=== PATIENT | female | born 1940 | race African-American/Black ===

== ENCOUNTER 2016-10-24 17:14 | Emergency (ER) | payer MEDICARE, BC ==
[~2016-10-24 17:14] MED LIST: ASPI-482; CLON0.1T; DONE10TA34; ESTR0.62; FLUT9.9S NS; HYDR1POW19; INSU100I13; INSU100I17; LISI-334; LORA10TA68 PO; NIFE90TA9
[2016-10-24 17:52] VITALS: BP 109/50
--- NOTE | 2016-10-24 18:20 | PHYS DOC ---
Past Medical History Past Medical History: Anxiety, Depression, Diabetes-Type II, High Cholesterol, Hypertension Past Surgical History: Cholecystectomy, Hysterectomy, Other Additional Past Surgical Histo: rotator cuff left Alcohol Use: None Drug Use: None Adult General Chief Complaint Chief Complaint: SHOULDER INJURY HPI HPI Patient is a 76 year old female with history of hypertension high cholesterol diabetes type 2 and anxiety who presents today with mild right shoulder pain that she states has been going on for 2 days. Patient denies any known injury. Patient also fell in the ED waiting area, she states she was trying to sit on a wheelchair and the wheelchair moved back she ended up landing on her buttocks and is complaining of low back pain, patient denies any loss of consciousness, patient denies hitting her head on the ground. Patient denies any loss of consciousness. Review of Systems Review of Systems Constitutional: Denies fever or chills [] Eyes: Denies change in visual acuity, redness, or eye pain [] HENT: Denies nasal congestion or sore throat [] Respiratory: Denies cough or shortness of breath [] Cardiovascular: No additional information not addressed in HPI [] GI: Denies abdominal pain, nausea, vomiting, bloody stools or diarrhea [] : Denies dysuria or hematuria [] Musculoskeletal: Right shoulder pain and low back pain Integument: Denies rash or skin lesions [] Neurologic: Denies headache, focal weakness or sensory changes [] Endocrine: Denies polyuria or polydipsia [] Current Medications Current Medications Current Medications Medications (Trade) Dose Ordered Sig/[facility] Start Time Stop Time Status Last Admin Dose Admin Ketorolac Tromethamine (Toradol) 30 mg 1X ONCE 10/24/16 18:30 10/24/16 18:31 DC 10/24/16 18:19 30 MG Allergies Allergies Allergies Coded Allergies Type Severity Reaction Last Updated Verified No Known Drug Allergies 08/03/13 No Physical Exam Physical Exam Constitutional: Well developed, well nourished, no acute distress, non-toxic appearance. [] HENT: Normocephalic, atraumatic, bilateral external ears normal, oropharynx moist, no oral exudates, nose normal. [] Eyes: PERRLA, EOMI, conjunctiva normal, no discharge. [] Neck: Normal range of motion, no tenderness, supple, no stridor. [] Cardiovascular:Heart rate regular rhythm, no murmur [] Lungs & Thorax: Bilateral breath sounds clear to auscultation [] Abdomen: Bowel sounds normal, soft, no tenderness, no masses, no pulsatile masses. [] Skin: Warm, dry, no erythema, no rash. [] Back: Tenderness diffusely to paraspinal muscles of bilateral low lumbar region , slight midline tenderness to the lumbar region, no CVA tenderness. [] Extremities: Right shoulder with no obvious deformity. Tenderness diffusely throughout the right shoulder SCM joint, very limited range of motion to the right shoulder due to pain. Patient is not able to adduct right shoulder past 20 . Adequate plantar flexion and dorsiflexion of the right forearm. +2 right radial pulse, sensation intact to the right upper extremity. Adequate ulnar medial and radial sensation to the right upper extremity. Neurologic: Alert and oriented X 3, normal motor function, normal sensory function, no focal deficits noted. [] Psychologic: Affect normal, judgement normal, mood normal. [] Current Patient Data Vital Signs Vital Signs Date Time Temp Pulse Resp B/P Pulse Ox O2 Delivery O2 Flow Rate FiO2 10/24/16 17:52 98.4 78 18 98 Room Air 98.4 EKG EKG [] Radiology/Procedures Radiology/Procedures [] Course & Med Decision Making Course & Med Decision Making Pertinent Labs and Imaging studies reviewed. (See chart for details) Patient is in the ED with right shoulder pain and low back pain. Right shoulder pain has been going on for 2 days with no known injury. Right shoulder x-rays interpreted by Dr. Alves are negative for any acute findings but noted for arthritis. Her back pain began today when she fell in the ED waiting area. Lumbar x-rays interpreted by Dr. Alves are negative for any acute findings but noted for arthritis. Patient was discharged with Tylenol 3 and topical diclofenac. She is to follow-up with her own PCP in one week if pain continues. She was provided return precautions and discharged in stable condition. Dragon Disclaimer Dragon Disclaimer This electronic medical record was generated, in whole or in part, using a voice recognition dictation system. 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 Your x-rays of the shoulder and back are showing you have arthritis. Use the provided medicines as ordered. Follow-up with your doctor in one week. Come back to the ED symptoms worsen. Scripts Diclofenac Sodium (Voltaren)100 Gm Gel..gram.1 Gm TP QID #100 GM Ref 2 Prov:JOSE ASHER APRN 10/24/16 Acetaminophen With Codeine (Tylenol With Codeine #3 Tablet)1 Each Tablet1 Tab PO PRN Q6HRS PRN PAIN #20 TAB Prov:JOSE ASHER APRN 10/24/16 Problem Qualifiers Primary Impression: Lumbar contusion Encounter type: initial encounter Qualified Code: S30.0XXA - Contusion of lower back and pelvis, initial encounter Additional Impressions: Right shoulder pain Chronicity: acute Qualified Code: M25.511 - Pain in right shoulder DJD of right shoulder Osteoarthritis type: unspecified Qualified Code: M19.011 - Primary osteoarthritis, right 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
[2016-10-24] MEDS ORDERED: KETOROLAC TROMETHAMINE 30 MG/ML INJ. IM ONE (18:30)
[2016-10-24] MEDS ORDERED: ACET-704 PO (19:37)
[2016-10-24] MEDS ORDERED: DICL100G7 TP (19:37)
--- NOTE | 2016-10-25 10:11 | RAD ---
Three-view lumbar spine radiographs 10/24/2016 Clinical history: Low back pain with recent fall. AP and 2 lateral digital radiographs of the lumbar spine were obtained. Very mild S-shaped curvature of the thoracolumbar spine is noted. Mild anterolisthesis of L4 in relation to L5 is seen. Mild to moderate anterolisthesis of L5 in relation to S1 is noted. Degenerative changes are seen throughout the lower thoracic and throughout the lumbar disc spaces consisting of varying degrees of disc space narrowing, vertebral endplate sclerosis and mild to moderate anterior vertebral body osteophyte formation. Degenerative changes are seen involving the facet joints throughout the mid and lower lumbar disc spaces. No fracture or subluxation is seen. Atherosclerotic calcification of the abdominal aorta and its branches is seen. Impression: No acute fracture or subluxation of the lumbar vertebrae is seen.
--- NOTE | 2016-10-25 11:03 | RAD ---
Three-view right shoulder radiographs 10/24/2016 Clinical history: Right shoulder pain for 3 weeks. AP internal and external rotation and transscapular digital radiographs of the right shoulder were obtained. No fracture or dislocation of the right shoulder is seen. Moderate to severe degenerative changes are seen involving the right glenohumeral joint and right AC joint. Superior subluxation of the right humeral head and relation to the glenoid is noted. Bone to bone contact of the humeral head with the acromion is seen. These findings are consistent with a complete tear of the right supraspinatus tendon ( rotator cuff). Impression: Degenerative changes are seen involving the right shoulder as outlined above. No fracture or dislocation is seen.
== END 2016-10-24 19:51 | disposition home or self-care (01) ==
LOC: ER 17:14
DX: S30.0XXA Contusion of lower back and pelvis, initial encounter (principal); M25.511 Pain in right shoulder; M19.011 Primary osteoarthritis, right shoulder; M47.816 Spondylosis without myelopathy or radiculopathy, lumbar region; E11.9 Type 2 diabetes mellitus without complications; E78.00 Pure hypercholesterolemia, unspecified; I10 Essential (primary) hypertension; Z90.49 Acquired absence of other specified parts of digestive tract; Z90.710 Acquired absence of both cervix and uterus; W18.39XA Other fall on same level, initial encounter; Y93.89 Activity, other specified; Y92.89 Other specified places as the place of occurrence of the external cause; Y99.8 Other external cause status
CPT/HCPCS: 72100; 73030; 96372; 99284; J1885

== ENCOUNTER → 2016-12-08 | Outpatient (CLI) | payer MEDICARE, BC ==
[~2016-12-08] MED LIST changes: +ACET-704 PO; +CONTRAST GIVEN MC PRN; +DICL100G7 TP; +IOHEXOL 240 MG/ML 50ML VIAL. PO ONE; +IOHEXOL 300 MG/ML 75 ML VIAL IV ONE
--- NOTE | 2016-12-08 12:12 | RAD ---
Indication abdominal pain. Weight loss. Duration of symptoms one year. Assess for a cold malignancy. Axial images of the abdomen and pelvis were obtained. Both oral and IV contrast were administered. 75 cc of Omnipaque 300 was administered intravenously. No prior CT imaging of the abdomen or pelvis is available. A definite significant finding at the lung bases is not seen. There is a small pleural-based noncalcified nodule in the right lower lobe measuring approximately 6 x 2 mm. (Image 5 series 2). This is probably incidental but follow-up imaging along the lines of the Fleischner criteria should be considered. There is a 3 mm noncalcified pulmonary nodule in the left lower lobe, image 6. Again follow-up imaging along the lines of the Fleischner criteria should be considered. There may be small, approximately 2 mm, nodules in the right middle lobe seen on the first and second images. There is a small, uncomplicated, abdominal wall hernia in the midabdomen just to the left of midline. A small periumbilical hernia containing only fat is additionally noted. The liver and spleen appear unremarkable. No pancreatic abnormality is seen. There is possible thickening over a 2 cm segment involving the antrum of the stomach. The finding could be secondary to peristalsis. If gastric pathology is suspect endoscopy would be advised. No adrenal or renal pathology is seen. There is no significant central or retroperitoneal adenopathy in the abdomen. In the pelvis no focal mass or inflammatory process is seen. IMPRESSION: No acute finding seen in the abdomen or pelvis. Possible thickening involving the gastric antrum. The finding is not certain and may be a reflection of peristalsis. If gastric pathology is suspect endoscopy should be considered. Small ventral wall abdominal hernias appearing uncomplicated. Small noncalcified pulmonary nodules at the lung bases. Follow-up imaging will lines of the Fleischner criteria should be considered. Nodules detected incidentally at non-screening CT Nodule size (mm) less than or equal to 4 Low Risk patients- no follow-up needed High Risk patients- follow-up at 12 months and if no change, no further imaging needed. Nodule size > 4-6 mm Low risk patients- follow- up at 12 months and if no change, no further imaging needed High risk patients- initial follow-up CT at 6-12 months and then at 18-24 months if no change. Nodule Size > 6-8 mm Low risk patients- initial follow-up CT at 6-12 months and then at 18-24 months if no change. High risk patients- initial follow- up CT at 3-6 months and then at 9-12 months if no change, Nodule Size >8 mm Either low or high risk patients: Follow-up CT at around 3, 9 and 24 months Dynamic contrast enhanced [address], PET, and/or biopsy Note: newly detected indeterminate nodule in person 35 years of age or older. Low risk patients- minimal or absent history of smoking and/or other known risk factors. High risk patients- history of smoking or of other known risk factors. PQRS Compliance Statement: One or more of the following individualized dose reduction techniques were utilized for this examination: 1. Automated exposure control 2. Adjustment of the mA and/or kV according to patient size 3. Use of iterative reconstruction technique
== END | disposition home or self-care (01) ==
LOC: CT 10:09
PROVIDERS: ATTEND Specialist
DX: R10.9 Unspecified abdominal pain (principal); R63.4 Abnormal weight loss; R91.8 Other nonspecific abnormal finding of lung field
CPT/HCPCS: 74177; Q9966; Q9967

== ENCOUNTER → 2016-12-10 | Outpatient (CLI) | payer MEDICARE, BC ==
[~2016-12-10] MED LIST changes: -CONTRAST GIVEN MC PRN; -IOHEXOL 240 MG/ML 50ML VIAL. PO ONE; -IOHEXOL 300 MG/ML 75 ML VIAL IV ONE
--- NOTE | 2016-12-10 08:51 | RAD ---
Indication continuing weight loss for approximately a year. Poor appetite. Protocol study. Suspect occult malignancy. PA and lateral views of the chest were obtained. Comparison is made to an examination August 03, 2013. Heart size is at the upper limits of normal. There is no gross congestive heart failure. Acute parenchymal infiltrate in either lung is not seen. Significant pleural fluid is not present. There is no pneumothorax. There are degenerative changes about the right shoulder and in the thoracic spine. IMPRESSION:: No acute or focal process is seen in the chest
--- NOTE | 2016-12-10 11:48 | RAD ---
Radionuclide gastric emptying study, 12/10/2016: History: Nausea, weight loss The study was performed utilizing a solid test meal radiolabeled with 2.1 mCi of technetium 99m sulfur colloid. Imaging of the abdomen obtained out to one hour showed very little gastric emptying. The time activity curve is relatively flat. An accurate T1/2 cannot be calculated in this circumstance. IMPRESSION: Markedly delayed gastric emptying
== END | disposition home or self-care (01) ==
LOC: NM 08:15
PROVIDERS: ATTEND Specialist
DX: K30 Functional dyspepsia (principal); R63.0 Anorexia; R63.4 Abnormal weight loss
CPT/HCPCS: 71020; 78264; A9541

== ENCOUNTER 2017-01-14 22:33 | Emergency (ER) | payer OTHER, MEDICARE, BC ==
[~2017-01-14] VITALS: Ht 160 cm; Wt 69.4 kg
[~2017-01-14 22:33] MED LIST changes: +DICL100G18 TP; -DICL100G7 TP; -DONE10TA34; +DONE10TA61
[2017-01-14] MEDS ORDERED: oxyCODONE/APAP 5/325 1 TAB TABLET PO ONE (23:00)
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
[2017-01-14] MEDS ORDERED: OXYC-323 PO (23:31)
[2017-01-14 23:57] VITALS: BP 135/65
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
== END 2017-01-15 00:03 | disposition home or self-care (01) ==
LOC: ER 22:33
DX: S49.92XA Unspecified injury of left shoulder and upper arm, initial encounter (principal); S49.91XA Unspecified injury of right shoulder and upper arm, initial encounter; F41.9 Anxiety disorder, unspecified; F32.9 Major depressive disorder, single episode, unspecified; E11.9 Type 2 diabetes mellitus without complications; E78.00 Pure hypercholesterolemia, unspecified; I10 Essential (primary) hypertension; Z90.49 Acquired absence of other specified parts of digestive tract; Z90.710 Acquired absence of both cervix and uterus; V43.52XA Car driver injured in collision with other type car in traffic accident, initial encounter; Y93.I9 Activity, other involving external motion; Y92.410 Unspecified street and highway as the place of occurrence of the external cause; Y99.8 Other external cause status
CPT/HCPCS: 73030; 73060; 82962; 99284

== ENCOUNTER → 2017-06-02 | Outpatient (CLI) | payer MEDICARE, BC ==
[~2017-06-02] MED LIST changes: +OXYC-323 PO
--- NOTE | 2017-06-03 08:17 | RAD ---
DATE: 06/03/2017 EXAM: DIGITAL SCREEN BILAT W/CAD HISTORY: Routine screening COMPARISON: Previous mammogram from 2016 and 2014 This study was interpreted with the benefit of Computerized Aided Detection (CAD). FINDINGS: Breast Density: SCATTERED The breast parenchyma shows scattered fibroglandular densities. Breast parenchyma level B. The skin and nipples are within normal limits. No suspicious calcifications, spiculated masses or areas of architectural distortion. IMPRESSION: No mammographic evidence of malignancy. Stable mammogram. BI-RADS CATEGORY: 1 NEGATIVE RECOMMENDED FOLLOW-UP: 12M 12 MONTH FOLLOW-UP PQRS compliance statement: Patient information was entered into a reminder system with a target due date 06/03/2018 for the next mammogram. Mammography is a sensitive method for finding small breast cancers, but it does not detect them all and is not a substitute for careful clinical examination. A negative mammogram does not negate a clinically suspicious finding and should not result in delay in biopsying a clinically suspicious abnormality. "Our facility is accredited by the [employer] Mammography [employer]."
== END | disposition home or self-care (01) ==
LOC: MAMMO 14:20
PROVIDERS: ATTEND Family Medicine
DX: Z12.31 Encounter for screening mammogram for malignant neoplasm of breast (principal)
CPT/HCPCS: G0202; 77067

== ENCOUNTER → 2018-10-07 | Outpatient (CLI) | payer MEDICARE, BC ==
[~2018-10-07] MED LIST changes: -OXYC-323 PO; +OXYC1TAB15 PO
--- NOTE | 2018-10-07 13:12 | RAD ---
DATE: 10/07/2018 EXAM: MAMMO TOM SCREENING BILATERAL HISTORY: Routine screening COMPARISON: 06/02/2017 This study was interpreted with the benefit of Computerized Aided Detection (CAD). Breast Density: SCATTERED The breast parenchyma shows scattered fibroglandular densities. Breast parenchyma level B. FINDINGS: 2-D and 3-D tomosynthesis imaging was performed in CC and MLO projections. No new or enlarging breast densities are seen. Minimal benign type calcification is present. No suspicious microcalcifications are evident. IMPRESSION: Stable mammograms without evidence of malignancy. BI-RADS CATEGORY: 3 PROBABLY BENIGN FINDING(S)-SHORT INTERVAL FOLLOW-UP SUGGESTED RECOMMENDED FOLLOW-UP: 12M 12 MONTH FOLLOW-UP PQRS compliance statement: Patient information was entered into a reminder system with a target due date for the next mammogram. Mammography is a sensitive method for finding small breast cancers, but it does not detect them all and is not a substitute for careful clinical examination. A negative mammogram does not negate a clinically suspicious finding and should not result in delay in biopsying a clinically suspicious abnormality. "Our facility is accredited by the [employer] Mammography [employer]."
== END | disposition home or self-care (01) ==
LOC: MAMMO 11:31
PROVIDERS: ATTEND Nurse Practitioner Family
DX: Z12.31 Encounter for screening mammogram for malignant neoplasm of breast (principal)
CPT/HCPCS: 77063; 77067

== ENCOUNTER 2019-12-01 12:31 | Inpatient (IN) | payer OTHER, BC ==
[~2019-12-01] VITALS: Ht 162.6 cm; Wt 63.6 kg
[~2019-12-01 12:31] MED LIST changes: -CLON0.1T; +CLON0.1T PO; -DICL100G18 TP; +DICL100G54 TP; -DONE10TA61; +DONE10TA61 PO; -INSU100I13; +INSU100I13 SQ; -LISI-334; +LISI-334 PO; +NIFE90TA49 PO; -NIFE90TA9
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
[2019-12-01] MEDS ORDERED: ACETAMINOPHEN 325 MG TABLET. PO PRN (13:30)
[2019-12-01] MEDS ORDERED: HYDROcodone/APAP 5/325MG 1 TAB TABLET PO ONE (13:30)
[2019-12-01] MEDS ORDERED: ONDANSETRON PF 4 MG/2 ML VIAL. IV PRN ×2 (13:30→16:45)
[2019-12-01] MEDS ORDERED: DEXTROSE 50% 25 GM / 50ML DISP.SYRIN. IV PRN (13:30)
[2019-12-01] MEDS ORDERED: MORPHINE SULFATE 2 MG/ML VIAL. IV ONE (13:30)
--- NOTE | 2019-12-01 14:02 | RAD ---
EXAM: CHEST 1 VIEW History: Preop COMPARISON: 08/03/2039 TECHNIQUE: Single portable radiograph of the chest FINDINGS: The cardiac silhouette is unremarkable. The lungs are clear bilaterally. The costophrenic sulci are clear and well demarcated. IMPRESSION: No radiographic evidence of an acute cardiopulmonary process. Electronically signed by: Doe Oh MD (12/01/2019 1:59 PM) [id number]
[2019-12-01 14:04] LABS: BASO # 0.1 x10^3/uL (0.0-0.2); BASO % 1 % (0-3); EOS # 0.2 x10^3/uL (0.0-0.7); EOS % 2 % (0-3); HEMATOCRIT 32.2 % (36.0-47.0); HEMOGLOBIN 10.8 g/dL (12.0-15.5); LYMPH # 2.5 x10^3/uL (1.0-4.8); LYMPH % 23 % (24-48); MEAN CORPUSCULAR HEMOGLOBIN 26 pg (25-35); MEAN CORPUSCULAR HGB CONC 34 g/dL (31-37); MEAN CORPUSCULAR VOLUME 79 fL (79-100); MONO # 0.6 x10^3/uL (0.0-1.1); MONO % 6 % (0-9); NEUT # 7.2 x10^3/uL (1.8-7.7); NEUT % 68 % (31-73); PLATELET COUNT 379 x10^3/uL (140-400); RED BLOOD COUNT 4.09 x10^6/uL (3.50-5.40); RED CELL DISTRIBUTION WIDTH 17.2 % (11.5-14.5); WHITE BLOOD COUNT 10.6 x10^3/uL (4.0-11.0)
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
[2019-12-01 15:19] LABS: CALCIUM 8.7 mg/dL (8.5-10.1); CREATININE 1.1 mg/dL (0.6-1.0); GFR 57.7; POTASSIUM 3.3 mmol/L (3.5-5.1)
[2019-12-01 15:26] LABS: ALBUMIN 3.1 g/dL (3.4-5.0); ALBUMIN/GLOBULIN RATIO 0.8 (1.0-1.7); TOTAL BILIRUBIN 0.3 mg/dL (0.2-1.0); TOTAL PROTEIN 7.2 g/dL (6.4-8.2)
--- NOTE | 2019-12-01 17:21 | NUR ---
Patient to transfer to [address] [place] [address] given.
[2019-12-01] MEDS: MORPHINE SULFATE 4 MG/ML VIAL. IV PRN ×2 (17:47→20:32)
[2019-12-01 18:00] VITALS: BP 140/72
--- NOTE | 2019-12-01 18:00 | NUR ---
Received patient transfer from ICU, will continue to monitor patient.
[2019-12-01 19:11] LABS: BACTERIA,URINE MANY /HPF (0-FEW); BILIRUBIN,URINE NEGATIVE (NEG); CLARITY,URINE CLEAR; COLOR,URINE YELLOW; HYALINE CASTS, URINE MODERATE /HPF; NITRITE,URINE NEGATIVE (NEG); PH,URINE 5.5 (<5.0-8.0); PROTEIN,URINE 30 mg/dL (NEG-TRACE); RBC,URINE 0 /HPF (0-2); SQUAMOUS EPITHELIAL CELL,UR MANY /LPF; UROBILINOGEN,URINE 0.2 mg/dL (0.2 mg/dL); YEAST,URINE PRESENT /HPF
[2019-12-01] MEDS ORDERED: POTASSIUM CHLORIDE 20 MEQ TABLET.ER. PO ONE (20:30)
[2019-12-01] MEDS ORDERED: METF10007 PO (20:52)
[2019-12-01 22:14] VITALS: BP 205/73
[2019-12-01] MEDS ORDERED: cloNIDine HCL 0.1 MG TABLET PO PRN (22:30)
[2019-12-01] MEDS ORDERED: IV NORMAL SALINE 1000ML BAG 1,000 ML IV ONE (22:30)
[2019-12-01] MEDS: DICLOFENAC SODIUM 1% TOPICAL GEL 100GM TUBE. TP SCH (22:41)
[2019-12-01] MEDS: oxyCODONE/APAP 5/325 1 TAB TABLET PO PRN (23:53)
[2019-12-02] VITALS (13 sets, daily range): BP systolic 147–209; BP diastolic 55–84
[2019-12-02] MEDS: MORPHINE SULFATE 4 MG/ML VIAL. IV PRN (00:48)
--- NOTE | 2019-12-02 01:53 | NUR ---
This RN is taking over care from previous RN. Pt. is asleep at this time. Addendum: 12/02/19 at 0156 by EMILY HOOPER RN This note was meant for a different patient.
[2019-12-02] MEDS: hydrALAZINE 20 MG/ML VIAL. IVP PRN ×2 (03:47→20:50)
[2019-12-02 04:35] LABS: BASO % 0 % (0-3); EOS # 0.1 x10^3/uL (0.0-0.7); EOS % 1 % (0-3); HEMATOCRIT 32.7 % (36.0-47.0); HEMOGLOBIN 10.8 g/dL (12.0-15.5); LYMPH # 1.4 x10^3/uL (1.0-4.8); LYMPH % 12 % (24-48); MEAN CORPUSCULAR HEMOGLOBIN 26 pg (25-35); MEAN CORPUSCULAR HGB CONC 33 g/dL (31-37); MEAN CORPUSCULAR VOLUME 78 fL (79-100); MONO # 0.7 x10^3/uL (0.0-1.1); MONO % 6 % (0-9); NEUT # 9.4 x10^3/uL (1.8-7.7); NEUT % 81 % (31-73); PLATELET COUNT 369 x10^3/uL (140-400); RED BLOOD COUNT 4.18 x10^6/uL (3.50-5.40); RED CELL DISTRIBUTION WIDTH 17.6 % (11.5-14.5); WHITE BLOOD COUNT 11.6 x10^3/uL (4.0-11.0)
[2019-12-02 05:02] LABS: CALCIUM 8.8 mg/dL (8.5-10.1); CREATININE 0.8 mg/dL (0.6-1.0); GFR 83.3; POTASSIUM 3.5 mmol/L (3.5-5.1)
--- NOTE | 2019-12-02 05:48 | EKG ---
[facility] [address] [place] [address] Test Date: 2019-12-02 Test Time: 05:02:25 Pat Name: STEVEN KRUGER Department: Room: [facility] Gender: F Travel Consultant: CHANDLER : 1940 Requested By: ALPHONSO AARON Order Number: [id number] Reading MD: Krishna Gannon MD Measurements Intervals [place] Rate: 77 P: 57 NE: 162 QRS: -13 QRSD: 76 T: 29 QT: 392 QTc: 445 Interpretive Statements SINUS RHYTHM NON-SPECIFIC ST/T CHANGES Electronically Signed On 12-04-2019 12:20:26 CDT by Krishna Gannon MD
[2019-12-02] MEDS ORDERED: ONDANSETRON PF 4 MG/2 ML VIAL. IV PRN (07:00)
[2019-12-02] MEDS ORDERED: PROCHLORPERAZINE 10 MG/2 ML VIAL. IV PRN (07:00)
[2019-12-02] MEDS ORDERED: LIDOCAINE 1% PF 2 ML VIAL. ID PRN (07:00)
[2019-12-02] MEDS ORDERED: fentaNYL PF VIAL 100 MCG/2 ML VIAL IV PRN ×2 (07:00)
[2019-12-02] MEDS ORDERED: HYDROmorphone 2 MG/ML VIAL IV PRN (07:00)
[2019-12-02] MEDS ORDERED: IV RINGERS,LACTATED 1000ML 1,000 ML IV SCH (07:00)
[2019-12-02] MEDS ORDERED: MORPHINE SULFATE 2 MG/ML VIAL. IV PRN (07:00)
[2019-12-02] MEDS ORDERED: DEXAMETHASONE SOD PHOS 4 MG/ML VIAL ONE (07:42)
[2019-12-02] MEDS ORDERED: ONDANSETRON PF 4 MG/2 ML VIAL. ONE (07:42)
[2019-12-02] MEDS ORDERED: PROPOFOL 10 MG/ML (20ML) VIAL. IV ONE (07:42)
[2019-12-02] MEDS ORDERED: LIDOCAINE 2% PF 5 ML VIAL. ONE (07:42)
[2019-12-02] MEDS ORDERED: SUCCINYLCHOLINE 200 MG/10 ML VIAL. ONE (07:50)
[2019-12-02] MEDS: ASPIRIN ENTERIC COATED 81 MG TABLET.DR. PO SCH (08:00)
[2019-12-02] MEDS ORDERED: ceFAZolin SODIUM IV Push 1 GM VIAL. IVP ONE (08:15)
[2019-12-02] MEDS ORDERED: MORPHINE SULFATE 10 MG/ML VIAL. ONE (08:39)
[2019-12-02] MEDS ORDERED: BUPIVACAINE MPF 0.5% 30 ML VIAL. ONE (08:56)
[2019-12-02] MEDS ORDERED: POTASSIUM CHLORIDE 20 MEQ TABLET.ER. PO ONE ×2 (09:00→15:45)
[2019-12-02] MEDS: DICLOFENAC SODIUM 1% TOPICAL GEL 100GM TUBE. TP SCH ×4 (09:00→20:50)
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
[2019-12-02] MEDS ORDERED: SEVOFLURANE 61 TO 120 MINUTES. IH ONE (09:09)
[2019-12-02] MEDS ORDERED: hydrALAZINE 20 MG/ML VIAL. ONE (10:00)
[2019-12-02] MEDS ORDERED: ceFAZolin SODIUM IV Push 1 GM VIAL. IVP PRN (10:30)
[2019-12-02] MEDS: FLUTICASONE 50MCG/NASAL SPRAY 16GM BOTTLE. NS SCH (14:57)
[2019-12-02] MEDS: DONEPEZIL HCL 10 MG TABLET. PO SCH (14:57)
[2019-12-02] MEDS: LISINOPRIL 20 MG TABLET PO SCH (15:00)
[2019-12-02] MEDS: CHOLECALCIFEROL (VITAMIN D3) 5,000 UNIT CAPSULE PO SCH (15:01)
--- NOTE | 2019-12-02 20:10 | PDOC4 ---
Operative Note Operative Note Date of surgery: 12/02/2019 Preoperative diagnosis: Right ankle bimalleolar fracture dislocation Postoperative diagnosis: Same with additional anterior comminution Operative procedure: Operative reduction internal fixation right bimalleolar ankle fracture Surgeon: Lalito Anesthesia: General Estimated blood loss: 25 cc Complications: None Operative indications: Please see my dictated orthopedic consultation note of today for detailed operative indications Operative text: Patient was identified procedure verified and she was placed in the supine position on the operating table. After adequate amounts of general anesthesia were administered the right lower extremity was prepped and draped in standard sterile fashion and after timeout was performed patient procedure identified and verified the right lower extremity was exsanguinated by Esmarch bandage tourniquet inflated to 250 mmHg a curvilinear incision was made over the medial malleolus extended up to the distal metaphyseal area and anatomic reduction was carried out of the large medial fragment and a [employer] variable angle locking plate was placed and provisionally fixated under fluoroscopic guidance. Nonlocking shaft screw was initially placed to further buttress and distal locking screws were placed to hold the distal fragment in reduction and these were checked under multiple fluoroscopic views to ensure no joint penetration occurred. Remaining shaft screws including some locking screws were placed proximally and anatomic reduction appeared of the ankle joint mortise and the medial fragment. The distal fibula was comminuted and a [employer] variable angle distal fibular locking plate was employed again with a small shaft screw with provisional fixation and distal locking screws under fluoroscopic guidance to further ensure alignment of the distal fibula and its support of the ankle joint mortise further locking screws were placed proximally in the shaft and anatomic placement of the ankle joint mortise was noted. She did have some comminution anteriorly but this was noted to be well aligned and the joint congruent. Thorough irrigation carried out with normal saline solution closure accomplished with buried Vicryl suture skin closure with ann a well-padded stirrup splint was placed following sterile dressings toes were noted to be warm pink following deflation of the tourniquet after total tourniquet time slightly in excess of 1 hour patient was returned to recovery room in stable condition having tolerated the procedure well SYLWIA NEUMANN MD December 02, 2019 20:10
[2019-12-02] MEDS ORDERED: INSU100I13 SQ (21:21)
[2019-12-02] MEDS: INSULIN GLARGINE SYRINGE. SQ SCH (21:39)
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
[2019-12-03 03:02] VITALS: BP 162/61
[2019-12-03 05:26] LABS: CALCIUM 8.6 mg/dL (8.5-10.1); GFR 64.4
[2019-12-03 05:43] LABS: BASO % 0 % (0-3); EOS % 0 % (0-3); HEMATOCRIT 27.3 % (36.0-47.0); HEMOGLOBIN 9.2 g/dL (12.0-15.5); LYMPH # 2.3 x10^3/uL (1.0-4.8); LYMPH % 18 % (24-48); MEAN CORPUSCULAR HEMOGLOBIN 26 pg (25-35); MEAN CORPUSCULAR HGB CONC 34 g/dL (31-37); MEAN CORPUSCULAR VOLUME 78 fL (79-100); MONO # 1.1 x10^3/uL (0.0-1.1); MONO % 9 % (0-9); NEUT % 72 % (31-73); PLATELET COUNT 300 x10^3/uL (140-400); RED BLOOD COUNT 3.49 x10^6/uL (3.50-5.40); RED CELL DISTRIBUTION WIDTH 17.4 % (11.5-14.5); WHITE BLOOD COUNT 12.5 x10^3/uL (4.0-11.0)
[2019-12-03 07:27] VITALS: BP 158/56
[2019-12-03] MEDS: DICLOFENAC SODIUM 1% TOPICAL GEL 100GM TUBE. TP SCH ×4 (07:53→20:55)
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
[2019-12-03] MEDS: ASPIRIN ENTERIC COATED 81 MG TABLET.DR. PO SCH (07:54)
[2019-12-03] MEDS: metFORMIN 500 MG TABLET PO SCH (07:54)
[2019-12-03] MEDS: FLUTICASONE 50MCG/NASAL SPRAY 16GM BOTTLE. NS SCH (07:55)
[2019-12-03] MEDS: LISINOPRIL 20 MG TABLET PO SCH (07:55)
[2019-12-03] MEDS: DONEPEZIL HCL 10 MG TABLET. PO SCH (07:55)
[2019-12-03] MEDS: CHOLECALCIFEROL (VITAMIN D3) 5,000 UNIT CAPSULE PO SCH (07:56)
[2019-12-03] MEDS: INSULIN GLARGINE SYRINGE. SQ SCH ×2 (08:05→20:59)
[2019-12-03] MEDS: INSULIN LISPRO 300 UNITS/3 ML VIAL. SQ SCH ×6 (09:29→20:59)
[2019-12-03] MEDS ORDERED: CHOL500021 PO (10:53)
[2019-12-03] MEDS ORDERED: ASPI325T8 PO (10:53)
[2019-12-03] MEDS ORDERED: OXYC1TAB15 PO (10:53)
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
[2019-12-03 11:36] VITALS: BP 151/59
[2019-12-03 15:59] VITALS: BP 138/56
[2019-12-03] MEDS: oxyCODONE/APAP 5/325 1 TAB TABLET PO PRN (18:59)
[2019-12-03 19:00] VITALS: BP 189/69
[2019-12-03] MEDS: hydrALAZINE 20 MG/ML VIAL. IVP PRN (20:53)
[2019-12-03 23:00] VITALS: BP 147/62
[2019-12-04 03:00] VITALS: BP 149/62
[2019-12-04 07:00] VITALS: BP 163/76
[2019-12-04] MEDS: INSULIN LISPRO 300 UNITS/3 ML VIAL. SQ SCH ×7 (07:30→21:00)
[2019-12-04] MEDS: FLUTICASONE 50MCG/NASAL SPRAY 16GM BOTTLE. NS SCH (08:38)
[2019-12-04] MEDS: DICLOFENAC SODIUM 1% TOPICAL GEL 100GM TUBE. TP SCH ×4 (08:38→20:43)
[2019-12-04] MEDS: metFORMIN 500 MG TABLET PO SCH (08:39)
[2019-12-04] MEDS: DONEPEZIL HCL 10 MG TABLET. PO SCH (08:39)
[2019-12-04] MEDS: CHOLECALCIFEROL (VITAMIN D3) 5,000 UNIT CAPSULE PO SCH (08:39)
[2019-12-04] MEDS: ASPIRIN ENTERIC COATED 81 MG TABLET.DR. PO SCH (08:39)
[2019-12-04] MEDS: LISINOPRIL 20 MG TABLET PO SCH ×3 (08:40→20:44)
[2019-12-04] MEDS: INSULIN GLARGINE SYRINGE. SQ SCH ×2 (08:49→21:00)
[2019-12-04 11:00] VITALS: BP 185/78
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
[2019-12-04] MEDS: hydrALAZINE 20 MG/ML VIAL. IVP PRN (12:04)
--- NOTE | 2019-12-04 12:31 | NUR ---
JAKY following. Discussed with RN, pt from home with granddaughterLillie ([phone]). PT/OT recommending SNU. JAKY met with pt (no isolation precautions at the time) to discuss discharge planning. Pt does not want to go to SNU as she is worried about the bills, SW explained the insurance coverage - pt worried if she has to stay more than 20 days. Pt reported she has a big family who can help her. SW expressed concern about pt's non weight bearing status, pt reported she would be trying the knee scooter with therapy this afternoon. Pt agreed to go to SNU if she does not do well with the scooter. Pt also gave permission for SW to contact her granddaughter. JAKY spoke with Lillie, she works 12 hour shifts so would not be able to care for pt. Lillie would like for pt to go to SNU, even if just for 20 days so she can figure out with her work to be able to be home 25/01 to help take care of pt. Lillie advised she will call pt to speak with her and contact JAKY to advise of discussion/ plan. JAKY will continue to follow. Pt has [facility]. Addendum: 12/04/19 at 1537 by ZAINAB STARKEY JAKY spoke with Lillie - pt agreed to go to SNU. JAKY met with pt, pt agreed for SNU, went to [facility] in the past. Pt would like referral sent to [facility] as they have had no COVID-19. Pt had Coronavirus in October 2019 - test negative early November. JAKY faxed referral to [facility] (ph: [phone], fax: [phone]), awaiting acceptance decision, insurance auth and confirmation of whether pt needs another COVID test. RN notified. Pt choice of vendor form completed by pt.
[2019-12-04 15:00] VITALS: BP 139/57
[2019-12-04 19:00] VITALS: BP 156/66
[2019-12-04 23:00] VITALS: BP 156/64
[2019-12-05] VITALS (7 sets, daily range): BP systolic 135–171; BP diastolic 55–74
[2019-12-05] MEDS: oxyCODONE/APAP 5/325 1 TAB TABLET PO PRN (02:18)
[2019-12-05 07:24] LABS: BASO # 0.1 x10^3/uL (0.0-0.2); BASO % 1 % (0-3); EOS # 0.4 x10^3/uL (0.0-0.7); EOS % 3 % (0-3); HEMATOCRIT 27.4 % (36.0-47.0); HEMOGLOBIN 9.2 g/dL (12.0-15.5); LYMPH # 2.6 x10^3/uL (1.0-4.8); LYMPH % 24 % (24-48); MEAN CORPUSCULAR HEMOGLOBIN 26 pg (25-35); MEAN CORPUSCULAR HGB CONC 34 g/dL (31-37); MEAN CORPUSCULAR VOLUME 78 fL (79-100); MONO # 0.9 x10^3/uL (0.0-1.1); MONO % 8 % (0-9); NEUT % 64 % (31-73); PLATELET COUNT 340 x10^3/uL (140-400); RED BLOOD COUNT 3.51 x10^6/uL (3.50-5.40); RED CELL DISTRIBUTION WIDTH 17.6 % (11.5-14.5)
[2019-12-05] MEDS: INSULIN LISPRO 300 UNITS/3 ML VIAL. SQ SCH ×7 (07:30→21:00)
[2019-12-05 07:40] LABS: CALCIUM 8.4 mg/dL (8.5-10.1); CREATININE 0.8 mg/dL (0.6-1.0); GFR 83.3; POTASSIUM 3.4 mmol/L (3.5-5.1)
[2019-12-05] MEDS: LISINOPRIL 20 MG TABLET PO SCH ×2 (09:43→21:02)
[2019-12-05] MEDS: DONEPEZIL HCL 10 MG TABLET. PO SCH (09:43)
[2019-12-05] MEDS: ASPIRIN ENTERIC COATED 81 MG TABLET.DR. PO SCH (09:43)
[2019-12-05] MEDS: CHOLECALCIFEROL (VITAMIN D3) 5,000 UNIT CAPSULE PO SCH (09:44)
[2019-12-05] MEDS: metFORMIN 500 MG TABLET PO SCH (09:44)
[2019-12-05] MEDS: DICLOFENAC SODIUM 1% TOPICAL GEL 100GM TUBE. TP SCH ×4 (09:45→21:00)
[2019-12-05] MEDS: FLUTICASONE 50MCG/NASAL SPRAY 16GM BOTTLE. NS SCH (10:02)
[2019-12-05] MEDS: INSULIN GLARGINE SYRINGE. SQ SCH ×2 (10:03→21:00)
--- NOTE | 2019-12-05 10:12 | NUR ---
JAKY following. Discussed with RN, pt now has insurance listed as [employer], not BCBS/Medicare replacement. JAKY spoke with Blanca at [facility] to determine if insurance change will be an issue, awaiting confirmation. Also discussed with Blanca whether pt needs another COVID test, even though was positive and recovered. JAKY will continue to follow. Addendum: 12/05/19 at 1159 by ZAINAB STARKEY Pt accepted at [facility], pending insurance auth. Pt does not need another COVID test, as was negative in November after being positive in October. BAILEY notified. Addendum: 12/05/19 at 1610 by ZAINAB STARKEY Insurance contacted JAKY at 1606 to advise of insurance auth for SNU placement. JAKY contacted [facility], pt cannot transfer there today due to time. JAKY notified Dr. Gracia of [facility], requesting discharge paperwork for tomorrow (12/06/2019). RN notified.
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
[2019-12-05] MEDS ORDERED: POTASSIUM CHLORIDE 20 MEQ TABLET.ER. PO ONE (13:30)
[2019-12-05] MEDS: DEXTROSE 50% 25 GM / 50ML DISP.SYRIN. IV PRN (16:34)
[2019-12-06] MEDS: oxyCODONE/APAP 5/325 1 TAB TABLET PO PRN ×2 (01:12→10:54)
[2019-12-06 03:00] VITALS: BP 108/69
[2019-12-06 06:53] VITALS: BP 141/60
[2019-12-06] MEDS: INSULIN LISPRO 300 UNITS/3 ML VIAL. SQ SCH ×4 (07:14→12:00)
[2019-12-06] MEDS: DEXTROSE 50% 25 GM / 50ML DISP.SYRIN. IV PRN (07:18)
[2019-12-06] MEDS ORDERED: POTASSIUM CHLORIDE 20 MEQ TABLET.ER. PO SCH (08:00)
[2019-12-06] MEDS: DICLOFENAC SODIUM 1% TOPICAL GEL 100GM TUBE. TP SCH (08:35)
[2019-12-06] MEDS: ASPIRIN ENTERIC COATED 81 MG TABLET.DR. PO SCH (08:35)
[2019-12-06] MEDS: metFORMIN 500 MG TABLET PO SCH (08:35)
[2019-12-06] MEDS: FLUTICASONE 50MCG/NASAL SPRAY 16GM BOTTLE. NS SCH (08:36)
[2019-12-06] MEDS: DONEPEZIL HCL 10 MG TABLET. PO SCH (08:36)
[2019-12-06] MEDS: LISINOPRIL 20 MG TABLET PO SCH (08:36)
[2019-12-06] MEDS: CHOLECALCIFEROL (VITAMIN D3) 5,000 UNIT CAPSULE PO SCH (08:36)
[2019-12-06] MEDS: INSULIN GLARGINE SYRINGE. SQ SCH (08:43)
--- NOTE | 2019-12-06 09:13 | NUR ---
SW following. Discussed with RN and Dr. Gracia. Pt discharging to [facility] today - awaiting discharge paperwork. JAKY will continue to follow. Addendum: 12/06/19 at 1145 by ZAINAB STARKEY Transportation set up for 1245. Discharge paperwork and scripts faxed to [facility]. RN and family notified.
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
[2019-12-06 10:57] VITALS: BP 171/66
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
--- NOTE | 2019-12-06 13:04 | NUR ---
Discharge instructions and report called and given to Jesus AVALOS @[facility] ext:[phone]. Patients belongings all accounted for. Patient was transported to via wheelchair by transportation.
== END 2019-12-06 13:05 | DRG 494 ==
LOC: SURG 12:31 → 1 WEST ICU 13:59 → 4 NORTH 18:05
PROVIDERS: ADMIT Internal Medicine; ATTEND Internal Medicine
PROC: 0QSJ04Z Reposition Right Fibula with Internal Fixation Device, Open Approach (ICD-10-PCS; 2019-12-02)
PROC: 0QSG04Z Reposition Right Tibia with Internal Fixation Device, Open Approach (ICD-10-PCS; principal; 2019-12-02 08:00)
DX: S82.841A Displaced bimalleolar fracture of right lower leg, initial encounter for closed fracture (principal); F41.9 Anxiety disorder, unspecified; I10 Essential (primary) hypertension; E78.00 Pure hypercholesterolemia, unspecified; E11.9 Type 2 diabetes mellitus without complications; E78.5 Hyperlipidemia, unspecified; I16.0 Hypertensive urgency; G31.84 Mild cognitive impairment of uncertain or unknown etiology; D63.8 Anemia in other chronic diseases classified elsewhere; E55.9 Vitamin D deficiency, unspecified; M85.80 Other specified disorders of bone density and structure, unspecified site; E87.6 Hypokalemia; F32.9 Major depressive disorder, single episode, unspecified; Z90.710 Acquired absence of both cervix and uterus; Z90.49 Acquired absence of other specified parts of digestive tract; Y93.I9 Activity, other involving external motion; Y92.481 Parking lot as the place of occurrence of the external cause; Y99.8 Other external cause status; V49.09XA Driver injured in collision with other motor vehicles in nontraffic accident, initial encounter; Z83.3 Family history of diabetes mellitus; Z82.49 Family history of ischemic heart disease and other diseases of the circulatory system; Z83.49 Family history of other endocrine, nutritional and metabolic diseases
CPT/HCPCS: 36415; 71045; 73610; 76000; 80048; 80053; 81001; 82306; 82962; 83540; 83550; 83735; 84132; 85025; 87086; 93005; 96374; 99285; C1713; J0330; J0360; J0690; J1100; J1815; J2270; J2405; J2704; J3490; J7030; J7042; J7120; 97110-GP; 97116-GP; 97530-GO; 97530-GP; 97535-GO; G0378

== ENCOUNTER → 2019-12-30 | Outpatient (CLI) | payer OTHER, BC ==
[2019-12-06 10:57] VITALS: BP 171/66
[~2019-12-30] MED LIST changes: +ASPI325T8 PO; +CHOL500021 PO; +METF10007 PO
--- NOTE | 2019-12-30 11:21 | RAD ---
EXAM: Bilateral lower extremity venous Doppler. HISTORY: Left lower extremity pain/swelling. COMPARISON: None. FINDINGS: Grayscale and Doppler analysis of the left lower extremity deep venous systems was performed with graded compression and augmentation. The common femoral, greater saphenous, superficial femoral, popliteal and calf veins were assessed. There is no evidence of deep venous thrombosis. IMPRESSION: 1. No evidence of deep venous thrombosis in the left lower extremity. Electronically signed by: Maicol Ambrocio MD (12/30/2019 11:18 AM) [id number]
== END | disposition home or self-care (01) ==
LOC: US 10:19
PROVIDERS: ATTEND Internal Medicine
DX: M79.605 Pain in left leg (principal)
CPT/HCPCS: 93971

== ENCOUNTER → 2020-04-11 | Outpatient (CLI) | payer BC, OTHER ==
[~2020-04-11] MED LIST changes: +ATOR20TA58 PO; +CITA20TA6 PO; +HYDR12.58 PO; +IOHEXOL 180 MG/ML 10 ML VIAL. ONE; +methylPREDNISolone ACETATE 40 MG/ML VIAL. ONE; +methylPREDNISolone ACETATE 80 MG/ML VIAL. ONE
--- NOTE | 2020-04-11 12:49 | PDOC1 ---
INITIAL PAIN CONSULT DATE OF SERVICE: DOS: DATE: 04/11/20 TIME: 12:38 CHIEF COMPLAINT: Chief Complaint: Neck and right upper extremity pain HISTORY OF PRESENT ILLNESS: 80-year-old female presents history of pain base the neck and right upper extremity for about 4 months now not the result of any specific injury or accident that she is aware is becoming more painful in the base the neck and the right upper extremity posterior deltoid lateral deltoid anterior deltoid biceps and triceps and forearm mostly on the anterior aspect of the forearm patient with tingling patient describes the pain as throbbing and shooting some tingling and numbness as well from sleep at night once or twice patient reports is aching and cramping in the base of the neck worse with extension of the spine as well as right lateral rotation of the spine in the cervical distribution. Reports no loss of motor function but significant fatigability with any repetitive motions lifting items with right hand has not been dropping anything but with reaching overhead is becoming more painful as with reaching forward or posteriorly becoming more difficult and fatigues very easily with repetitive motions such as using cutlery or stacking items and working in her kitchen. Patient describes her disability rating 0-10 10 being the worst is a 7 with family home responsibilities and social activity 8 with recreational activities 6 with self- care activities. Patient have a CT scan of the cervical spine showing multilevel cervical spondylosis most pronounced at C5-6 and C6-7 with moderate disc diffuse osteophyte complex changes of facet arthropathy moderate to marked left foraminal stenosis and moderate right foraminal stenosis at C6-7 showing mild right foraminal stenosis and moderate left foraminal narrowing. PAST MEDICAL HISTORY: PMH: Arthritis, hypertension, diabetes, coronary artery disease PREVIOUS SURGERIES: Past Surgical Hx: Hysterectomy 30 years ago, cholecystectomy 20 days ago, left shoulder surgery 20+ years ago CURRENT MEDICATIONS: Current Meds: Active Scripts Medications Dose Route/Sig Max Daily Dose Days Date Category Atorvastatin Calcium 20 Mg Tablet 1 Tab PO DAILY 04/11/20 Reported Hydrochlorothiazide Tablet (Hydrochlorothiazide) 12.5 Mg Tablet Unknown Dose PO DAILY 04/11/20 Reported Citalopram Hbr (Citalopram Hydrobromide) 20 Mg Tablet 1 Tab PO DAILY 04/11/20 Reported Lantus Solostar (Insulin Glargine,Hum.rec.anlog) 100 Unit/1 Ml Insuln.pen 28 Unit SQ DAILY 12/02/19 Reported Metformin Hcl 1,000 Mg Tablet 1,000 Mg PO DAILYWBKFT 12/01/19 Reported Clonidine Hcl 0.1 Mg Tablet 0.1 Mg PO DAILY 08/03/13 Reported Lisinopril 20 Mg Tablet 20 Mg PO DAILY 08/03/13 Reported Nifedipine Er (Nifedipine) 90 Mg Tab.er.24 90 Mg PO DAILY 08/03/13 Reported Aspir 81 (Aspirin) 81 Mg Tablet.dr DAILY 08/03/13 Reported Lantus Solostar (Insulin Glargine,Hum.rec.anlog) 100 Unit/1 Ml Insuln.pen 26 Unit SQ HS 08/03/13 Reported ALLERGIES; Allergies: Coded Allergies: No Known Drug Allergies (Unverified , 08/03/13) FAMILY HISTORY: Family Hx: Diabetes and hypertension SOCIAL HISTORY: Social Hx: Patient does not drink alcohol does not smoke or use any illegal illicit recreat ional drugs is lives locally in [facility] and is currently retired REVIEW OF SYSTEMS: ROS: Positive for those items mentioned in history of present illness, all systems are reviewed, otherwise negative, is complete full and well-documented on patient's chart PHYSICAL EXAM: VS: Blood pressure is 166/64 pulse 69 respirations 18 temperature is 90.0 F height is 5 foot 3 inches weight is 145 pounds PE: PHYSICAL EXAMINATION: GENERAL: The patient is awake, alert, oriented, appropriate, very pleasant demeanor HEENT: Shows normocephalic, atraumatic. Extraocular movements are intact and symmetrical. Oral cavity: Mucous membranes moist and pink. Dentition is i ntact, with partials upper and lower NECK: Shows anterior throat supple without palpable lymphadenopathy noted. Swallow reflex symmetrical. CHEST: Shows normal on inspection. Breath sounds are clear bilaterally, no rales rhonchi wheezes auscultated. HEART: Shows S1, S2 clear. No murmurs auscultated. ABDOMEN: Soft, nontender, nondistended, obese. No palpable organomegaly is note d. No rebound or guarding demonstrated. BACK: Shows spine grossly in the midline. Normal-appearing cervical lordotic curvature. Cervical spine shows full rotation motion both laterally as well as extension flexion with some moderate tenderness with right lateral rotation motion and extension but not with forward flexion or left lateral rotation. Cervical posterior musculature shows symmetrical with inspection on palpation some moderate tenderness diffusely in the inferior aspect the cervical paraspinous musculature more on the right than the left into the superior medial trapezius on the right as well but without specific trigger points without atrophy hypertrophy and without asymmetry. There is slightly increased thoracic kyphosis, some minor flattening of the lumbar lordotic curvature. Lumbar paraspinous muscles show symmetrical on inspection, on palpation shows some moderate tenderness diffusely throughout the upper, middle and lower distribution of the paraspinous muscles bilaterally, without specific trigger points, without radiation of pain. The patient has good rotational motion of the lumbar spine, both laterally as well as extension and flexion without significant difficulty. No tenderness over the spinous processes, sacrum or sacroiliac regions. EXTREMITIES: Upper extremities show deep tendon reflexes 2+ in the biceps and triceps tendons. Motor exam is 4 on a scale of 5 with right research technician strength, biceps and triceps flexion and 5/5 on the left. Peripheral pulses are 2+ posterior radial. No peripheral edema is noted bilaterally. Upper extremities are warm and dry to touch, equal in color and appearance. Shoulder shrug is strong and intact without loss of strength on resistance but with some moderate pain on the right with resistance and this is true for abduction of the shoulder 90 degrees as well. SKIN: Shows warm and dry, good turgor. No edema. No sores, rashes or bruising throughout. IMPRESSION: Impression: 80-year-old female with approximate 4-month history increasing pain base of neck right shoulder and upper extremity radicular fashion CT scan cervical spine as noted Arthritis Hypertension Cardiovascular disease Plan: Options were discussed with patient including conservative medical management, physical therapies, and interventional techniques. Patient would like to pursue interventional techniques, we discussed a cervical epidural steroid injection using description as well as anatomical models to describe the procedure. Patient understands wished to proceed. Risks were discussed including but not limited to: Bleeding, infection, possibility of epidural hematoma and subsequent neurological compromise, dural puncture, headaches, spinal cord and/or nerve damage, side effects of steroid medication, and poor results regarding pain control. Patient understands wished to proceed. Patient will return to clinic in approximate 2 weeks for follow-up was counseled as to return appointment activity level and side effects to be aware of. Procedure cervical epidural steroid injection at the C6-7 level, using local anesthetic under sterile prep and drape using C-arm fluoroscopic guidance under local anesthesia medications injected ; 120 mg Depo-Medrol + 5 mL normal saline and 2 mL contrast; condition at discharge is stable patient tolerated procedure well. and had no complications LEA CISNEROS MD Apr 11, 2020 12:49
== END ==
LOC: PNCL 10:52
PROVIDERS: ATTEND Anesthesiology
DX: M47.812 Spondylosis without myelopathy or radiculopathy, cervical region (principal); M48.02 Spinal stenosis, cervical region; M19.90 Unspecified osteoarthritis, unspecified site; I10 Essential (primary) hypertension; I25.10 Atherosclerotic heart disease of native coronary artery without angina pectoris; M79.601 Pain in right arm; E11.9 Type 2 diabetes mellitus without complications; Z98.890 Other specified postprocedural states; Z79.84 Long term (current) use of oral hypoglycemic drugs; Z83.3 Family history of diabetes mellitus; Z82.49 Family history of ischemic heart disease and other diseases of the circulatory system; Z79.899 Other long term (current) drug therapy
CPT/HCPCS: 62321; J1030; J1040; Q9965

== ENCOUNTER → 2020-05-01 | Outpatient (CLI) | payer BC ==
--- NOTE | 2020-05-01 11:07 | PDOC ---
Progress Note - Pain Clinic Date of Service: DOS: DATE: 05/01/20 TIME: 11:03 Diagnosis: Dx: Cervical radiculopathy with cervical degenerative disc disease History or Present Illness: HPI: 80-year-old female returns follow-up status post cervical epidural steroid traction x1. Patient was about 75% improvement in the neck and right upper extremity pain. Patient reports an increase in her distance walking doing household activities greater ease and comfort sleeping better at night does not awaken her from sleep at this time patient reports that she is very pleased with her progress no new motor or sensory deficits or other complaints still some linda n in the base the neck and the right shoulder and arm but much improved from what it was. Patient reports is a 4 to scale 10 is worst for an average and is 0 at its least is a 4 today. Patient reports no other changes describes pain is aching in the base the neck and right shoulder mostly in the anterior lateral aspect of the deltoid base of the trapezius and the neck and into the right bicep and forearm again the radiation of the arm is only infrequent now. Physical Exam: VS: Blood pressure is 184/86 pulse 61 respirations 20 temperature 97.9 F weight is 147 pounds PE: PHYSICAL EXAMINATION: GENERAL: The patient is awake, alert, oriented, appropriate, very pleasant demeanor HEENT: Shows normocephalic, atraumatic. Extraocular movements are intact and symmetrical. Oral cavity: Mucous membranes moist and pink. NECK: Shows anterior throat supple without palpable lymphadenopathy noted. Swallow reflex symmetrical. CHEST: Shows normal on inspection. Breath sounds are clear bilaterally, no rales rhonchi or wheezes auscultated bilaterally. HEART: Shows S1, S2 clear. No murmurs auscultated. ABDOMEN: Soft, nontender, nondistended, obese. No palpable organomegaly is noted. No rebound or guarding demonstrated. BACK: Shows spine grossly in the midline. Normal-appearing cervical lordotic curvature. Cervical spine shows good rotation motion both laterally greater than 45 degrees right and left with extension and flexion performed without significant difficulty. Musculature shows symmetrical in the cervical paraspinous muscles with palpation shows some mild tenderness in the upper mid dle lower distribution the paraspinous muscles more on the right than the left into the superior medial trapezius on the right as well but without asymmetry without trigger points or radiation. There is slightly increased thoracic kyphosis, some minor flattening of the lumbar lordotic curvature. Lumbar paraspinous muscles show symmetrical on inspection, on palpation shows some mo derate tenderness diffusely throughout the upper, middle and lower distribution of the paraspinous muscles bilaterally without radiation of pain. The patient has good rotational motion of the lumbar spine, both laterally as well as extension and flexion without significant difficulty. No tenderness over the spinous processes, sacrum or sacroiliac regions. EXTREMITIES: Upper extremities show deep tendon reflexes 2+ in the biceps and tricep tendons. Motor exam is 4 on a scale of 5 with right bioinformaticist, biceps and triceps flexion and 4/5 on the left. Peripheral pulses are 2+ radial. No peripheral edema is noted bilaterally. Upper extremities are warm and dry to touch, equal in color and appearance. SKIN: Shows warm and dry, good turgor. No edema. No sores, rashes or bruising throughout. Procedure: Procedure: Options were discussed with the patient. Patient's old chart was reviewed as her current medication regimen updated current review of systems updated today as well. We will proceed with a second in the series cervical epidural steroid injection today with fluoroscopic guidance. Risks were discussed including but not limited to: Bleeding, infection, possibility of epidural hematoma and subsequent neurological compromise, dural puncture, headaches, spinal cord and/or nerve damage, side effects of steroid medication, and poor results regarding pain control. Patient understands wished to proceed. Patient will return to the clinic in approximately 2 weeks for follow-up was counseled as to return appointment activity level and side effects to be aware of. Medication Injected: Med Injected: Procedure cervical epidural steroid injection at the C6-7 level, using local anesthetic under sterile prep and drape using C-arm fluoroscopic guidance under local anesthesia medications injected ; 120 mg Depo-Medrol + 5 mL normal sa line and 2 mL contrast; condition at discharge is stable patient tolerated procedure well. and had no complications Condition at Discharge: Condition at Discharge: Condition at discharge is stable patient tolerated the procedure well and had no complications. LEA CISNEROS MD May 01, 2020 11:07
== END ==
LOC: PNCL 10:18
PROVIDERS: ATTEND Anesthesiology
DX: M50.123 Cervical disc disorder at C6-C7 level with radiculopathy (principal); I10 Essential (primary) hypertension; E11.9 Type 2 diabetes mellitus without complications; E78.5 Hyperlipidemia, unspecified; Z79.82 Long term (current) use of aspirin; Z79.84 Long term (current) use of oral hypoglycemic drugs; Z79.899 Other long term (current) drug therapy; Z83.3 Family history of diabetes mellitus
CPT/HCPCS: 62321; J1030; J1040; Q9965

== ENCOUNTER → 2020-05-17 | Outpatient (CLI) | payer BC ==
--- NOTE | 2020-05-17 11:12 | PDOC ---
Progress Note - Pain Clinic Date of Service: DOS: DATE: 05/17/20 TIME: 11:08 Diagnosis: Dx: Cervical radiculopathy with cervical degenerative disc disease History or Present Illness: HPI: 80-year-old female returns to follow-up status post cervical epidural steroid injections x2. Patient reports about 50% improvement overall the pain in the neck and the right shoulder and arm. Patient reports no new motor or sensory deficits and reports she is doing much better with increased activity using her right upper extremity more comfortably doing household activities try with greater ease and sleeping better at night. Patient reports no new motor or se nsory deficits or other complaints patient rates her pain is 8 on scale 10 is worse over the past week 6 on average 3 at its least is a 6 today. Patient reports that she is using some diclofenac cream as well on the base of the right neck which does help as well. Patient reports no other changes or concerns. Physical Exam: VS: Blood pressure is 137/75 pulse 65 respiration 16 temperature 90.0 F weight is 147 pounds PE: PHYSICAL EXAMINATION: GENERAL: The patient is awake, alert, oriented, appropriate, very pleasant demeanor HEENT: Shows normocephalic, atraumatic. Extraocular movements are intact and symmetrical. NECK: Shows anterior throat supple without palpable lymphadenopathy noted. Swallow reflex symmetrical. CHEST: Shows normal on inspection. Breath sounds are clear bilaterally. HEART: Shows S1, S2 clear. No murmurs auscultated. ABDOMEN: Soft, nontender, nondistended, obese. No palpable organomegaly is noted. No rebound or guarding demonstrated. BACK: Shows spine grossly in the midline. Normal-appearing cervical lordotic curvature. Cervical spine shows good rotation motion both laterally greater than 45 degrees closer to 90 degrees without significant difficulty also full extension full forward flexion without significant difficulty or pain reported. Posterior cervical paraspinous musculature shows symmetrical on inspection with palpation some mild tenderness in the inferior aspect of the cervical paraspinous muscles more on the right than the left but without trigger points without atrophy or asymmetry. There is slightly increased thoracic kyphosis, some minor flattening of the lumbar lordotic curvature. EXTREMITIES: Upper extremities show deep tendon reflexes 2+ in the biceps and triceps tendons. Motor exam is 4 on a scale of 5 with right bed spring maker strength, biceps and triceps flexion and 4/5 on the left. Peripheral pulses are 2+ radial. No peripheral edema is noted bilaterally. Upper extremities are warm and dry to touch, equal in color and appearance. SKIN: Shows warm and dry, good turgor. No edema. No sores, rashes or bruising throughout. Procedure: Procedure: Options were discussed with the patient. Patient's old chart was reviewed as her current medication regimen updated current review of systems updated today as well. We will proceed with a third in the series cervical epidural steroid injection today with fluoroscopic guidance. Risks were discussed including but not limited to: Bleeding, infection, possibility of epidural hematoma and subsequent neurological compromise, dural puncture, headaches, spinal cord and/or nerve damage, side effects of steroid medication, and poor results regarding pain control. Patient understands wished to proceed. Patient will return to the clinic in approximately 2 weeks for follow-up, was counseled as to return appointment activity level and side effects to be aware of. Medication Injected: Med Injected: Procedure cervical epidural steroid injection at the C6-7 level, using local anesthetic under sterile prep and drape using C-arm fluoroscopic guidance under local anesthesia medications injected ; 120 mg Depo-Medrol + 5 mL normal saline and 2 mL contrast; condition at discharge is stable patient tolerated procedure well. and had no complications Condition at Discharge: Condition at Discharge: Condition at discharge is stable, patient tolerated procedure well and had no complications. LEA CISNEROS MD May 17, 2020 11:12
== END | disposition home or self-care (01) ==
LOC: PNCL 09:42
PROVIDERS: ATTEND Anesthesiology
DX: M50.10 Cervical disc disorder with radiculopathy, unspecified cervical region (principal); Z79.82 Long term (current) use of aspirin; Z79.4 Long term (current) use of insulin; Z79.899 Other long term (current) drug therapy
CPT/HCPCS: 62321; J1030; J1040; Q9965

== ENCOUNTER 2021-01-17 20:08 | Emergency (ER) | payer BC ==
[~2021-01-17] VITALS: Ht 160 cm; Wt 67.7 kg
[~2021-01-17 20:08] MED LIST changes: +ACET325T21 PO; +ALEN70TA71 PO; +AMLO-187 PO; +CELE-20 PO; +CHOL5000 PO; +DONE10TA7 PO; +HYDR-2869 PO; +HYDR12.59 PO; +INSU100V35 SQ; -IOHEXOL 180 MG/ML 10 ML VIAL. ONE; +LABE200T4 PO; +LIDO700A21 TD; +LISI-130 PO; -LISI-334 PO; +LISI20TA18 PO; +METF500T PO; -methylPREDNISolone ACETATE 40 MG/ML VIAL. ONE; -methylPREDNISolone ACETATE 80 MG/ML VIAL. ONE
[2021-01-18 03:19] LABS: BILIRUBIN,URINE NEGATIVE (NEG); CLARITY,URINE CLEAR; COLOR,URINE YELLOW; NITRITE,URINE NEGATIVE (NEG); PROTEIN,URINE NEGATIVE (NEG-TRACE); UROBILINOGEN,URINE 0.2 mg/dL (0.2 mg/dL)
[2021-01-18 03:31] LABS: BACTERIA,URINE MODERATE /HPF (0-FEW); RBC,URINE 0 /HPF (0-2)
--- NOTE | 2021-01-18 04:20 | PHYS DOC ---
Past Medical History Past Medical History: Anxiety, CAD, Depression, Diabetes-Type II, High Ch olesterol, Hypertension Past Surgical History: Cholecystectomy, Hysterectomy, Other Additional Past Surgical Histo: rotator cuff left Smoking Status: Light Tobacco Smoker Alcohol Use: None Drug Use: None General Adult EDM: Chief Complaint: PAIN ON URINATION HPI: HPI: 80-year-old female presents the ED with complaints of painful urination for the past week with increased urine output for the past day. States she was suppose to follow-up with her primary care physician yesterday after being admitted to the hospital for a "check up." Is unable to see her primary care physician for another week. Denies any associated fever, rash, abnormal vaginal discharge or bleeding, or abnormal skin irritation. Is concerned she has a urinary tract infection. Review of Systems: Review of Systems: Constitutional: Denies fever or chills. [] Eyes: Denies change in visual acuity. [] HENT: Denies nasal congestion or sore throat. [] Respiratory: Denies cough or shortness of breath. [] Cardiovascular: Denies chest pain or edema. [] GI: Denies abdominal pain, nausea, vomiting, : Denies hematuria or vaginal bleeding Musculoskeletal: Denies back pain or joint pain. [] Integument: Denies rash or diaphoresis Neurologic: Denies headache, focal weakness or sensory changes. [] Psychiatric: Denies depression or anxiety. [] Heart Score: C/O Chest Pain: No Risk Factors: Risk Factors: DM, Current or recent (<one month) smoker, HTN, HLP, family history of CAD, obesity. Risk Scores: Score 0 - 3: 2.5% MACE over next 6 weeks - Discharge Home Score 4 - 6: 20.3% MACE over next 6 weeks - Admit for Clinical Observation Score 7 - 10: 72.7% MACE over next 6 weeks - Early Invasive Strategies Current Medications: Current Medications Medications (Trade) Dose Ordered Sig/Melissa Start Time Stop Time Status Last Admin Dose Admin Fosfomycin Tromethamine (Monurol) 3 gm 1X ONCE 01/18/21 04:30 01/18/21 04:31 Allergies: Allergies: Allergies Coded Allergies Type Severity Reaction Last Updated Verified No Known Drug Allergies 08/03/13 No Physical Exam: PE: Constitutional: Well developed, well nourished, no acute distress, non-toxic appearance. HENT: Normocephalic, atraumatic, Eyes: EOMI, conjunctiva normal, no discharge. Neck: Normal range of motion, supple, Cardiovascular: S1/2 present, regular rhythm Lungs & Thorax: Speaking in full sentences, bilateral equal chest rise, no tachypnea or increased work of breathing Abdomen: soft, no tenderness, Skin: Warm, dry, Extremities: No tenderness, no cyanosis, n Neurologic: Alert and oriented X 3, no focal deficits noted. [] Psychologic: Affect normal, judgement normal, mood normal. [] Current Patient Data: Labs: Laboratory Tests Test 01/18/21 00:14 01/18/21 00:33 01/18/21 02:04 01/18/21 03:02 Glucose (Fingerstick) 79 mg/dL (70-99) 85 mg/dL (70-99) 92 mg/dL (70-99) Urine Collection Type Unknown Urine Color Yellow Urine Clarity Clear Urine pH 6.0 (<5.0-8.0) Urine Specific [place] 1.010 (1.000-1.030) Urine Protein Negative mg/dL (NEG-TRACE) Urine Glucose (UA) Negative mg/dL (NEG) Urine Ketones (Stick) Negative mg/dL (NEG) Urine Blood Negative (NEG) Urine Nitrite Negative (NEG) Urine Bilirubin Negative (NEG) Urine Urobilinogen Dipstick 0.2 mg/dL (0.2 mg/dL) Urine Leukocyte Esterase Negative (NEG) Urine RBC 0 /HPF (0-2) Urine WBC 1-4 /HPF (0-4) Urine Squamous Epithelial Cells Mod /LPF Urine Bacteria Moderate /HPF (0-FEW) Vital Signs: Vital Signs Date Time Temp Pulse Resp B/P (MAP) Pulse Ox O2 Delivery O2 Flow Rate FiO2 01/18/21 02:00 97.7 67 20 150/97 (78) 97 Room Air 97.7 EKG: EKG: [] Radiology/Procedures: Radiology/Procedures: [] Course & Med Decision Making: Course & Med Decision Making Pertinent Labs and Imaging studies reviewed. (See chart for details) Patient presents the ED with UTI complaints, is hemodynamically stable, afebrile . Urinalysis with no nitrates or leukocyte Estrace, is contaminated with wbcs, treated with fosfomycin in the ED. Will discharge home with strict ED return precautions were given for fever, flank pain, nausea, vomiting, flulike symptoms or severe pain. Encouraged urgent outpatient follow-up with pcp. Life- threatening processes were considered but are low suspicion at this time, given history, physical exam and ED workup. Pt was educated on all prescription medications and adverse effects. All patient's questions were answered and pt was stable at time of discharge. I have spoken with the patient and/or caregivers. I explained the patient's condition, diagnoses and treatment plan based on the information available to me at this time. I have answered the patient and/or caregiver's questions and addressed any concerns. The patient and/or caregivers have a good understanding of patient's diagnosis, condition and treatment plan as can be expected at this point. Vital signs have been stable. Patient's condition is stable and appropriate for discharge from the emergency department. Patient will pursue further outpatient evaluation with primary care physician or other designated or consulting physician as outlined in the discharge instructions. The patient and/or caregivers are agreeable to this plan of care and follow-up instructions have been explained in detail. The patient and/or caregivers have received these instructions in written form and have expressed an understanding of the discharge instructions. The patient and/or caregivers are aware that any significant change of condition or worsening of symptoms should prompt immediate return to this or the closest emergency department or call to 911. Edward Disclaimer: Edward Disclaimer: This electronic medical record was generated, in whole or in part, using a voice recognition dictation system. Departure Departure Impression: Primary Impression: Dysuria Additional Impression: Increased urinary frequency Disposition: HOME / SELF CARE / HOMELESS Condition: STABLE Referrals: MONICA ELLIS MD (PCP) within 7 days for repeat U/A Patient Instructions: Dysuria, Urinary Frequency, Urinary Tract Infection Additional Instructions: EMERGENCY DEPARTMENT GENERAL DISCHARGE INSTRUCTIONS Thank you for coming to [facility] Emergency Department (ED) today and trusting us with you care. We trust that you had a positive experience in our Emergency Department. If you wish to speak to the department management, you may call the Director at [phone]. YOUR FOLLOW UP INSTRUCTIONS ARE FOLLOWS: 1. Do you have a private Doctor? If you do not have a private doctor, please ask for a resource list of physicians or clinics that may be able to assist you with follow up care. 2. The Emergency Physicain has interpreted your x-rays. The X-Ray specialist will also review them. If there is a change in the findings, you will be notified in 48 hours when at all possible. 3. A lab test or culture has been done, your results will be reviewed and you will be notified if you need a change in treatment. ADDITIONAL INSTRUCTIONS AND INFORMATION: 1. Your care today has been supervised by a physician who is specially trained in emergency care. Many problems require more than one evaluation for a complete diagnosis and treatment. We recommend that you schedule your follow up appointment as recommended to ensure complete treatment of you illness or injury. If you are unable to obtain follow up care and continue to have a problem, or if your condition worsens, we recommend that you return to the ED. 2. We are not able to safely determine your condition over the phone nor are we able to give sound medical advice over the phone. For these safety reasons, if you call for medical advice we will ask you to come to the ED for further evaluation. 3. If you have any questions regarding these discharge instructions please call the ED at [phone]. SAFETY INFORMATION: In the interest of safety, wellness, and injury prevention; we encourage you to wear your sealbelt, if you smoke; quite smoking, and we encourage family to use a protective helmet for bicycling and other sporting events that present an increased risk for head injury. IF YOUR SYMPTOMS WORSEN OR NEW SYMPTOMS DEVELOP, OR YOU HAVE CONCERNS ABOUT YOUR CONDITION; OR IF YOUR CONDITION WORSENS WHILE YOU ARE WAITING FOR YOUR FOLLOW UP APPOINTMENT; EITHER CONTACT YOUR PRIMARY CARE DOCTOR, THE PHYSICIAN WHOSE NAME AND NUMBER YOU WERE GIVEN, OR RETURN TO THE ED IMMEDIATELY. LILO CARMONA DO Jan 18, 2021 04:20
[2021-01-18] MEDS ORDERED: FOSFOMYCIN TROMETHAMINE 3 GM PACKET PO ONE (04:30)
[2021-01-18 05:25] VITALS: BP 147/67
== END 2021-01-18 05:48 | disposition home or self-care (01) ==
LOC: ER 20:08
DX: R30.0 Dysuria (principal); R35.0 Frequency of micturition; F41.9 Anxiety disorder, unspecified; I25.10 Atherosclerotic heart disease of native coronary artery without angina pectoris; F32.9 Major depressive disorder, single episode, unspecified; E11.9 Type 2 diabetes mellitus without complications; E78.00 Pure hypercholesterolemia, unspecified; I10 Essential (primary) hypertension; F17.200 Nicotine dependence, unspecified, uncomplicated; Z90.49 Acquired absence of other specified parts of digestive tract; Z90.710 Acquired absence of both cervix and uterus
CPT/HCPCS: 81001; 82962; 87086; 99285

== ENCOUNTER → 2021-02-14 | Outpatient (CLI) | payer BC, MEDICARE ==
[2021-01-18 05:25] VITALS: BP 147/67
[~2021-02-14] MED LIST changes: +REGADENOSON 0.4 MG/5 ML DISP.SYRIN. IV ONE
--- NOTE | 2021-02-14 17:39 | RAD ---
MR#: [id number] Date of Study: 02/14/2021 Ordering Physician: THA SMITH, Referring Physician: SEDA NANCE Tech: RT Cliff (R) (N) APPROVED REPORT Test Type: Pharmacological Stress Nurse/Tech: Maria A Conner R.N. Test Indications: NSTEMI Cardiac History: stent 6 yrs ago,htn, DM Medications: See Electronic Medical Record Medical History: See Electronic Medical Record Resting ECG: SR Resting Heart Rate: 64 bpm Resting Blood Pressure: 187/70mmHg Pretest Chest Pain: No chest pain Nurse/Tech Notes S1S2, lungs CTA Consent: The procedure was explained to the patient in lay terms. Informed consent was witnessed. Ron eout was entered into [employer]. History and Stress Test performed by [facility]. Details Pharmacologic stress testing was performed using 0.4mg per 5ml of regadenoson given intravenously ove r 7-10 seconds. Stress Symptoms SOA POST EXERCISE Reason for Termination: Infusion complete Max HR: 91 bpm Max Blood Pressure: 164/66mmHg Blood Pressure response to exercise: Normal blood pressure response during stress. Heart Rate response to exercise: wnl Chest Pain: No. Arrhythmia: No. ST Change: No. INTERPRETATION Stress EKG Conclusion: The resting EKG shows a sinus rhythm with mild nonspecific ST-T wave changes. The stress EKG shows no significant changes from baseline. No EKG evidence of stress-induced ischemia. Imaging Protocol IMAGE PROTOCOL: Rest Tc-99m/stress Tc-99m 1 day Rest: Stress: Viability: Radiopharm.Tc99m [id number] Sestamibi [id number] 29mCi Duration 14min. 14min. Img Date 02/14/2021 02/14/2021 Inj-Img [id number]. 60min. Rest Admin Site:IV - Right AntecubitalAdministrator: VANESSA Yao, ARRT (R)(N) Stress Admin Site: IV - Right AntecubitalAdministrator: RT Cliff (R)(N) STRESS DATA End Diast. Vol.81.0mlAv. Heart Rate62.0bpm End Syst. Vol.15.0mlCO Index BSA0.0L/min Myocardial Qmxj514.0gEject. Pkzrlkzj94.0% Stress Rates Pk. Fill Rate3.10EDV/secLVtime Pk. Fill 204.95msec Pk. Empty Rate3.43ESV/secLVtime Pk. Mwcnn842.87msec 1/3 Pk. Fill1.17EDV/sec Stress Scores Regional WT2.00Summed WT10.00 Regional WM0.00Summed WM0.00 LV Perfusion The rest images show slight apical thinning. The stress images show slight apical thinning. Nuclear imaging shows no reversible ischemia. Nuclear imaging shows slight fixed apical lateral thinning which is probably a technical artifact. Wall Motion Left ventricular systolic function is normal with no regional wall motion abnormalities and an ejecti on fraction of greater than 70%. LV Perf. Quant 17 Seg. SSS3.00 17 Seg. SRS5.00 17 Seg. SDS1.00 Stress Defect Extent (% LAD)2.50Rest Defect Extent (% LAD)3.10Rev. Defect Extent (% LAD)0.00 Stress Defect Extent (% LCX) 37.50Rest Defect Extent (% LCX)15.00Rev. Defect Extent (% LCX)0.00 Stress Defect Extent (% RCA)0.00Rest Defect Extent (% RCA)0.00Rev. Defect Extent (% RCA)0.00 Stress Defect Extent (% CHRISTOPHER)10.20Rest Defect Extent (% CHRISTOPHER)6.50Rev. Defect Extent (% CHRISTOPHER)0.00 Conclusion 1. No EKG evidence of stress-induced ischemia. 2. Nuclear imaging shows no reversible ischemia. 3. Nuclear imaging shows slight fixed apical lateral thinning. 4. Left ventricular diastolic function is normal with no regional wall motion abnormalities and eject ion fraction of greater than 70%. 5. Moderately low to low risk Lexiscan nuclear stress test. Signed by : Zuhiar Ibanez MD Electronically Approved : 02/14/2021 17:39:02
== END ==
LOC: NM 09:13
PROVIDERS: ATTEND Internal Medicine Cardiovascular Disease
DX: I21.4 Non-ST elevation (NSTEMI) myocardial infarction (principal); R06.02 Shortness of breath
CPT/HCPCS: 78452; 93017; A9500; J2785

== ENCOUNTER → 2021-07-09 | Outpatient (CLI) | payer MEDICARE ==
[~2021-07-09] MED LIST changes: -REGADENOSON 0.4 MG/5 ML DISP.SYRIN. IV ONE
--- NOTE | 2021-07-09 17:26 | RAD ---
MR#: [id number] Date of Study: 07/09/2021 Ordering Physician: THA SMITH, Referring Physician: THA SMITH, Tech: Bárbara Montgomery, FELECIA, RVT, RTR APPROVED REPORT Patient Location: OUT-PATIENT Laterality:Bilateral Indications Bruit Doppler Spectral Velocity Analysis Right Left pCCA 125/9 cm/spCCA 79/15 cm/s mCCA 122/19 cm/smCCA 81/17 cm/s dCCA 76/15 cm/sdCCA 71/17 cm/s ECA 62/ cm/sECA 69/ cm/s pICA 84/20 cm/spICA 127/32 cm/s Celestine 96/19 cm/smICA 121/34 cm/s dICA 110/28 cm/sdICA 88/21 cm/s Vert. 36/ cm/sVert. 93/ cm/s ICA/CCA 0.88ICA/CCA 1.61 Findings Grayscale images of extracranial carotid arteries showed tortuous vessels with moderate atherosclerot ic plaque involving the carotid bulb regions bilaterally. Spectral waveform and color duplex analysi s showed normal velocities bilaterally suggestive of 0 to less than 50% stenosis. The ICA to CCA rat ios were normal bilaterally. The vertebral arteries showed antegrade flow bilaterally with normal ve locities. Critical Notification Critical Value: No <Conclusion> Carotid arterial duplex scan did not show any significant carotid artery stenosis. Signed by : Puma Low, Electronically Approved : 07/09/2021 17:26:12
== END ==
LOC: US 10:58
PROVIDERS: ATTEND Internal Medicine Cardiovascular Disease
DX: I65.23 Occlusion and stenosis of bilateral carotid arteries (principal); R09.89 Other specified symptoms and signs involving the circulatory and respiratory systems
CPT/HCPCS: 93880